=== PATIENT | female | born 1995 | race Caucasian/White ===

== ENCOUNTER → 2024-01-12 | Outpatient (CLI) | payer OTHER ==
--- NOTE | 2024-01-12 14:28 | CT ---
EXAMINATION TYPE: CT chest w con DATE OF EXAM: 01/12/2024 COMPARISON: None available. HISTORY: Localized enlargement lymph nodes. CT DLP: 618 mGycm Automated exposure control for dose reduction was used. TECHNIQUE: CT scan of the chest is performed with IV Contrast, patient injected with 100 mL of Isovue 300. MIP Images are created on CT scanner and reviewed. 3D reconstructed images are created on an independent workstation and reviewed. FINDINGS: Mediastinum and Coby: There is no axillary, mediastinal or hilar lymphadenopathy. There are significa ntly enlarged calcified right hilar lymph nodes with a conglomeration of lymph nodes in the right hil ar region measuring up to approximately 3.0 x 4.67 m in diameter. A conglomeration of calcified lymph nodes are also seen within the subcarinal region approximately 3.2 x 1.6 cm in diameter. This is mos t likely related to granulomatous change. Pleural and Pericardial spaces: There are no pleural or pericardial effusions. Upper Abdomen: There is a calcified granuloma in the dome of the right lobe of liver. The visualized upper abdomen otherwise appears unremarkable. Cardiovascular: The thoracic aorta is normal in size without evidence of aneurysm or dissection. Pulmonary Artery: There are no central pulmonary arterial abnormalities. The examination was not per formed to evaluate for pulmonary embolism. Lung Parenchyma and Airways: There is a 9.7 x 5.1 cm nodular density within the right middle lobe whi ch appears to have a subtle area of central calcification and may relate to granulomatous change. The re are a few additional smaller nodular densities within this region. Bones: No fracture or aggressive osseous lesion. IMPRESSION: 1. Significant calcified right hilar lymph nodes and subcarinal lymph nodes as well as possible granu cristhian in the right middle lobe as there may be some subtle calcification within this right middle lobe nodule described above. A follow-up in 3 months is recommended. 2. No acute findings otherwise seen.
== END | disposition home or self-care (01) ==
LOC: RADCTMAIN 12:50
PROVIDERS: ATTEND Internal Medicine
DX: R59.0 Localized enlarged lymph nodes (principal)
CPT/HCPCS: 71260; Q9967